=== PATIENT | male | born 1955 | race Two or more races ===

== ENCOUNTER 2022-12-24 00:55 | Emergency (ER) | payer BC, OTHER ==
[~2022-12-24] VITALS: Ht 185.4 cm; Wt 81.6 kg
[2022-12-24] MEDS ORDERED: BACLOFEN20 MG (01:40)
[2022-12-24] MEDS ORDERED: GRALISE600 MG (01:40)
[2022-12-24] MEDS ORDERED: OMEPRAZOLE-BIC1 EAC1 (01:40)
[2022-12-24] MEDS ORDERED: STOOL SOFTENER50 MG (01:41)
[2022-12-24] MEDS ORDERED: BENICAR40 MG (01:41)
[2022-12-24] MEDS ORDERED: TRAZODONE HCL100 MG (01:41)
[2022-12-24] MEDS ORDERED: ATORVASTATIN CA10 MG (01:41)
[2022-12-24] MEDS ORDERED: CELEBREX100 MG (01:42)
[2022-12-24 02:26] LABS: HEMATOCRIT 36.7 % (39.0-48.0); HEMOGLOBIN 12.3 g/dL (13-16.00); MEAN CELL VOLUME 93.4 fL (80.0-100.00); MEAN CORPUSCULAR HEMOGLOBIN 31.2 pg (27.00-32.0); MEAN CORPUSCULAR HGB CONC 33.4 g/dl (32.0-36.0); PLATELET COUNT 257 K/uL (150-450); RED BLOOD COUNT 3.93 M/uL (4.00-6.00); RED CELL DISTRIBUTION WIDTH 13.1 % (11.5-14.5)
[2022-12-24 02:44] LABS: INR 0.98; PARTIAL THROMBOPLASTIN TIME 26.8 SECONDS (22.0-34.0); PROTHROMBIN TIME 10.3 SECONDS (9.0-11.5)
== END 2022-12-24 05:52 | disposition home or self-care (01) ==
LOC: ER 00:55
PROVIDERS: General Practice
DX: R41.0 Disorientation, unspecified (principal); I10 Essential (primary) hypertension